=== PATIENT | male | born 1995 | race Caucasian/White ===

== ENCOUNTER 2017-03-28 13:11 | Emergency (ER) | payer BC ==
[~2017-03-28 13:11] MED LIST: ABILIFY2 MG PO; LEXAPRO5 MG PO; PRILOSEC20 MG PO; STRATTERA40 MG
[2017-03-28] MEDS ORDERED: NO HOME MEDICATION XX (14:08)
== END 2017-03-28 15:59 ==
LOC: EDMED 13:11
DX: I86.1 Scrotal varices (principal); R56.9 Unspecified convulsions; F17.200 Nicotine dependence, unspecified, uncomplicated; Z90.49 Acquired absence of other specified parts of digestive tract